=== PATIENT | female | born 1945 | race Caucasian/White ===

== ENCOUNTER 2021-10-05 15:18 | Emergency (ER) | payer MEDICARE, BC, SELFPAY ==
--- NOTE | ~2021-10-05 | MR_ITS ---
EXAMINATION: MR BRAIN WITHOUT AND WITH CONTRAST CLINICAL INFORMATION: Brain tumor. Further evaluate. COMPARISON: Head CT from 10/05/2021. TECHNIQUE: Multiplanar, multisequence MRI of the brain was obtained before and after the intravenous administration of 8 mL Gadavist. Limited study with motion artifacts. FINDINGS: There is a large midline parafalcine extra-axial mass measuring 6.3 x 5.8 x 6.7 cm in size which straddles both sides of the falx displacing and distorting the medial portions of the frontal lobes, the anterior cingulate gyri, and the corpus callosum. The inferior portion of the lesion depresses the anterior body of the corpus callosum and abnormally deviates the genu and rostrum of the corpus callosum anteroinferiorly. The mass demonstrates heterogeneous enhancement and contains scattered areas of peripheral calcification on the prior CT study. The mass is isointense to hypointense in signal with some internal areas of hyperintensity which may reflect necrosis. There is a mild amount of vasogenic edema in the surrounding frontal lobes. The mass distorts the ventricular system with compression of the frontal horns and anterior third ventricle. There is mild asymmetric prominence of the left lateral ventricle without distention of the temporal horn. There is what may represent a mild transependymal CSF effusion around the posterior body of the left lateral ventricle and occipital horn as a result of early obstructive changes at the level of the foramen of Gu on the left side. The fourth ventricle is normal in size. No extra-axial fluid collections are seen. There is no pathologic leptomeningeal enhancement. No abnormal parenchymal enhancement identified. The major intracranial flow voids at the level of the ute of Flores are preserved. The TAYLOR vasculature traverses along the inferior surface of the lesion and is deviated anteriorly by the mass within the cerebral sulci and interhemispheric fissure. Mass effect results in very mild transtentorial herniation without effacement of the suprasellar cistern. The cerebellum and brainstem are normal. The venous flow voids are maintained. The paranasal sinuses and mastoid air cells are well aerated. The orbits are normal. The pituitary axis structures are grossly unremarkable. The craniovertebral junction is normal. The marrow signal is mildly heterogeneous. MR/MR head/brain wo/w con IMPRESSION: Large midline extra-axial mass with heterogeneous signal and enhancement straddling both sides of the cerebral falx with resultant significant distortion of the frontal lobes, cingulate gyri, and corpus callosum. Given signal characteristics and areas of calcification, imaging findings are most suspicious for a large meningioma. Mild amount of edema in the surrounding brain parenchyma. Imaging findings of early left lateral ventricular obstructive changes due to compression of the foramen of Gu. Mild transependymal CSF effusion around the occipital horn of the left lateral ventricle.
--- NOTE | ~2021-10-05 | XR_ITS ---
EXAMINATION: XR ABDOMEN KUB CLINICAL INDICATION: Constipation COMPARISON: None TECHNIQUE: AP view of the abdomen. FINDINGS: The bowel gas pattern is normal with no evidence of ileus or obstruction. No unusual soft tissue calcifications are noted. Stool burden in the colon appears relatively normal. The bones are unremarkable aside from some mild degenerative changes in the lower thoracic spine and both hips.. XR/XR KUB IMPRESSION: Unremarkable examination.
--- NOTE | ~2021-10-05 | CT_ITS ---
EXAMINATION: CT HEAD WITHOUT CONTRAST CLINICAL INFORMATION: Abnormal behavior. COMPARISON: None. TECHNIQUE: Contiguous axial imaging was performed from the skull base to vertex without intravenous administration of contrast. This CT examination was performed using dose optimization techniques as appropriate, variously including the following: *Automated exposure control *Adjustment of mA and/or kV according to patient size (this includes techniques or standardized protocols for targeted exams where dose is matched to indication/reason for exam; i.e. extremities or head) *Use of iterative reconstruction technique DLP: 662 mGy-cm FINDINGS: There is a large intracranial mass centered in the anterior interhemispheric region and genus of the corpus callosum measuring approximately 6.7 x 5.5 x 5.8 cm (AP, TV and CC dimensions). There are regions of internal necrosis and some associated calcifications. There is surrounding hypoattenuation which could represent peritumoral edema or extension of disease. The mass is causing near complete effacement of the bifrontal horns and there is asymmetric dilatation of the left occipital and temporal horns, concerning for obstructive hydrocephalus. There is also medial displacement of the left uncus with obliteration of the left suprasellar cistern, concerning for uncal herniation. There is no evidence of extra lesional intracranial hemorrhage or edematous territorial infarction. Perez to white matter differentiation is otherwise preserved. No extra-axial fluid collections. No acute soft tissue or osseous abnormalities. The mastoid air cells and paranasal sinuses are clear. CT/CT head/brain wo con IMPRESSION: Large intracranial mass worrisome for an aggressive tumor such as glioblastoma multiforme. Correlate with an MR of the brain with and without intravenous contrast. There are findings worrisome for left obstructive hydrocephalus and left uncal herniation. This critical result was discussed with Dr Verde at 10/05/2021 6:38 PM and it was ascertained that the content and urgency of the report was understood at the time of direct communication.
[2021-10-05 15:39] VITALS: BP 148/56; PULSE 53; RESP 18; TEMP 36.4; O2SAT 99; BMI 26.6
[2021-10-05 16:20] VITALS: BP 146/73; PULSE 53; O2SAT 97
--- NOTE | 2021-10-05 16:20 | ED_ITS ---
HPI - Psych General Chief Complaint: Psychiatric Symptoms Stated Complaint: CRISIS Time Seen by Provider: 10/05/21 15:56 Source: patient and family Mode of arrival: ambulatory Limitations: altered mental status History of Present Illness HPI Narrative: 75-year-old female presents from [facility] for odd behaviors. She presents with family. MD complaint: altered mental status Onset (ago): year(s) Duration: constant and getting worse History of same: Yes Relieving factors: none Associated psychiatric symptoms: other (Sam) Associated symptoms: denies other symptoms Related Data Home Medications Medication Instructions Recorded Confirmed atorvastatin 20 mg tablet 20 mg PO BEDTIME 10/05/21 10/05/21 calcium carbonate 600 mg-vitamin 1 tab PO DAILY 10/05/21 10/05/21 D3 5 mcg (200 unit) tablet multivitamin with minerals 1 tab PO DAILY 10/05/21 10/05/21 omega 1-rbv-izr-fish oil 1,200 mg 1 cap PO DAILY 10/05/21 10/05/21 (144 mg-216 mg) capsule (Fish Oil) sertraline 25 mg tablet 50 mg PO DAILY 10/05/21 10/05/21 Allergies Allergy/AdvReac Type Severity Reaction Status Date / Time No Known Allergies Allergy Verified 10/05/21 15:38 Review of Systems Review of Systems: Constitutional: No Fever, No Chills ENT/Mouth: No Ear Pain, No Nasal Congestion, No sore throat Eyes: No Eye Pain, No Swelling, No Redness Cardiovascular: No Chest Pain, No SOB Respiratory: No Cough, No Sputum, No Dyspnea Gastrointestinal: No Nausea, No Vomiting, No Diarrhea, No Hematochezia, No Melena Genitourinary: No Dysuria, No Urinary Frequency, No Hematuria Musculoskeletal: No Myalgias Skin: No Skin Lesions, No rash Neuro: No Weakness, No Numbness, No Paresthesias, No Dizziness, No Headache Psych: positive Anxiety, positive Depression, no SI/HI, positive obsessive behaviors Heme/Lymph: No Lymphadenopathy Endocrine: No Polyuria, No Polydipsia Yes all other systems are reviewed and are negative [facility] Past Medical History Attestation statement: The following information was validated with the patient. Source: old records reviewed Social History Social History Alcohol intake: never Patient Tobacco Use Status: Never used Tobacco Use of substances other than those prescribed or required for medical reasons: No Advance Directives: Yes Advance Directives Information Provided: No Advance Directives on File: No Physical Exam Vital Signs: Vital Signs: Last Vital Signs Temp 97.9 F 10/05/21 22:03 Pulse 57 10/06/21 00:52 Resp 17 10/06/21 00:52 BP 148/52 H 10/05/21 22:03 Pulse Ox 98 10/05/21 22:03 BMI result Body Mass Index 26.6 Appearance: Alert. Oriented to self and situation. No acute distress. Eyes: Pupils equal, round and reactive to light. Sclera nonicteric. EOMI. ENT: Pharynx normal. Moist mucous membranes. Neck: Normal inspection. Neck supple. CVS: Normal heart rate and rhythm. Pulses normal. Respiratory: No respiratory distress. Breath sounds normal. Abdomen: Soft and nontender. Skin: Skin warm and dry. Normal skin color. Normal skin turgor. Extremities: No lower extremity edema. Gait well-balanced well coordinated Neuro: No motor deficit. No sensory deficit. Cranial nerves 2-12 intact Course Course Course Narrative: 75-year-old female presents with family for [facility] psych evaluation and possible admission. Patient has had concerning behaviors, questionable for sam, psychosis, catatonia. Has been sitting on the toilet for long periods of time without moving, making fraudulent charges on credit cards. Has had neuropsych workup, but family does not recall having any imaging of head. Will order CT scan, labs, urinalysis. Chart review record on 09/03/2021 from Clinical neuro psychologist. Medical history includes hypertension, hypercholesterolemia, and urinary incontinence. 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 Patient has been known to make poor judgments and having illogical reasoning. Has no sense of time, spent 2-3 hours showering, would often get her days and nights mixed up. Has given her credit card information to strangers. Was diagnosed with mild cognitive impairment in 2019. States to have rituals around toileting and dressing. Has hoarding like behaviors. 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 17:[address] scan indicates frontal cortex brain mass. Order for MRI with and without contrast. Discussion with family regarding plan, which family agrees. 18:44 discussion with Oncology, plan is for transfer as she requires biopsy and neurosurgery coverage which we do not offer at this facility. 19:20 call to [facility]. Discussion with Neurosurgery on-call. Plan is pending. 20:13 discussion with Neurosurgery on-call, patient is a stable patient, can have this MRI completed as an outpatient, [facility] is close to stable transfers at this time. Patient not a candidate to transfer to [facility] Neurosurgery at this time. Discussion with hospitalist, patient is stable and does not have medical necessity for admission. Care team will discuss with [facility] psych. 21:00 discussion with copy chief cotton bag sewer. 22:00 [facility] psych declined this patient for admission. After multiple discussions, geriatric psych will not accept this patient, hospitalist will not accept this patient as there is no medical necessity and patient is stable. Will order case Management social work associate. Multiple discussions with family regarding plan of care, family verbalized understanding of and agrees for case management consult. Family will follow-up with neuro surgery at [facility] Dr. Dominique Salguero later this week. Physician observation started at this time. 01:[address] Aguero Reevaluation(s) Reevaluation #1: [facility] Time: 18:44 Reevaluation #2: [facility] Time: 19:20 Reevaluation #3: [place] Time: 20:13 MDM - Psych MDM Narrative Medical decision making narrative: CVA, brain tumor Differential Diagnosis Differential diagnosis: Likely acute psychosis and depression Medical Records Attestation: I reviewed the patient's medical records. Lab Data Attestation: I reviewed the patient's lab results. Result diagrams: 10/05/21 17:55 10/05/21 19:25 Labs: Lab Results 10/05/21 10/05/21 10/05/21 Range/Units 17:46 17:55 19:25 WBC 6.7 (4.8-10.8) X10*3/uL RBC 5.19 (4.20-5.50) X10*6/uL Hgb 15.2 (12.0-16.0) g/dl Hct 46.6 (37.0-47.0) % MCV 89.8 (80.0-98.0) fL MCH 29.3 (27.0-33.0) pg MCHC 32.6 (31.0-35.0) g/dl RDW 13.0 (11.0-16.0) % Plt Count 234 (160-400) X10*3/uL MPV 11.3 (9.4-12.3) fL Immature Gran % (Auto) 0.1 (0.0-0.4) % Neut % (Auto) 67.4 (45-73) % Lymph % (Auto) 24.4 (20-40) % [place] % (Auto) 6.0 (2-11) % Eos % (Auto) 1.8 (0-4) % Baso % (Auto) 0.3 (0-2) % Lymph # (Auto) 1.6 (1.2-4.9) X10*3/uL [place] # (Auto) 0.4 (0.1-1.2) X10*3/uL Eos # (Auto) 0.1 (0.0-0.4) X10*3/uL Baso # (Auto) 0.0 (0.0-0.2) X10*3/uL Abs Immat Gran (auto) 0.01 (0.00-0.03) X10*3/uL Absolute Neuts (auto) 4.5 (2.0-8.3) x10*3/uL Absolute Nucleated RBC 0.000 (0.0-0.012) X10*3/uL Nucleated RBC % (auto) 0.0 (0.0-0.2) /100WBC Sodium 140 (135-145) mmol/L Potassium 3.9 (3.3-5.1) mmol/L Chloride 105 (96-108) mmol/L Carbon Dioxide 26 (22-29) mmol/L Anion Gap 13 (12-20) BUN 12 (9-16) mg/dL Creatinine 0.75 (0.5-1.4) mg/dL Estim Creat Clear Calc 70.4 Estimated GFR > 60 Random Glucose 87 (60-115) mg/dL Calcium 9.7 (8.4-10.2) mg/dL Total Bilirubin 0.8 (0.0-1.0) mg/dL AST 16 (5-31) U/L ALT 16 (0-31) U/L Alkaline Phosphatase 97 (39-117) U/L Total Protein 6.9 (6.5-8.0) g/dL Albumin 4.1 (3.5-5.0) g/dL Urine Color Urine Appearance Urine pH (5.0-8.0) Ur Specific Terry (1.005-1.025) Urine Protein (NEG-TRACE) MG/DL Urine Glucose (UA) (NEG) MG/DL Urine Ketones (NEG) MG/DL Urine Blood (NEG) Urine Nitrite (NEG) Ur Leukocyte Esterase (NEG) Salicylates < 5.0 L (15-30) mg/dL Urine Opiates Screen (Not Detect) Urine Fentanyl Screen (Not Detect) Acetaminophen < 1 (<30) mcg/mL Ur Barbiturates Screen (Not Detect) Ur Phencyclidine Scrn (Not Detect) Ur Amphetamines Screen (Not Detect) U Benzodiazepines Scrn (Not Detect) Urine Cocaine Screen (Not Detect) U Marijuana (THC) Screen (Not Detect) Ethyl Alcohol mg/dL COVID-19 (TONYA) Negative (Negative) COVID-19 Clin Com See Note 10/05/21 10/05/21 10/05/21 Range/Units 19:25 22:37 22:37 WBC (4.8-10.8) X10*3/uL RBC (4.20-5.50) X10*6/uL Hgb (12.0-16.0) g/dl Hct (37.0-47.0) % MCV (80.0-98.0) fL MCH (27.0-33.0) pg MCHC (31.0-35.0) g/dl RDW (11.0-16.0) % Plt Count (160-400) X10*3/uL MPV (9.4-12.3) fL Immature Gran % (Auto) (0.0-0.4) % Neut % (Auto) (45-73) % Lymph % (Auto) (20-40) % [place] % (Auto) (2-11) % Eos % (Auto) (0-4) % Baso % (Auto) (0-2) % Lymph # (Auto) (1.2-4.9) X10*3/uL [place] # (Auto) (0.1-1.2) X10*3/uL Eos # (Auto) (0.0-0.4) X10*3/uL Baso # (Auto) (0.0-0.2) X10*3/uL Abs Immat Gran (auto) (0.00-0.03) X10*3/uL Absolute Neuts (auto) (2.0-8.3) x10*3/uL Absolute Nucleated RBC (0.0-0.012) X10*3/uL Nucleated RBC % (auto) (0.0-0.2) /100WBC Sodium (135-145) mmol/L Potassium (3.3-5.1) mmol/L Chloride (96-108) mmol/L Carbon Dioxide (22-29) mmol/L Anion Gap (12-20) BUN (9-16) mg/dL Creatinine (0.5-1.4) mg/dL Estim Creat Clear Calc Estimated GFR Random Glucose (60-115) mg/dL Calcium (8.4-10.2) mg/dL Total Bilirubin (0.0-1.0) mg/dL AST (5-31) U/L ALT (0-31) U/L Alkaline Phosphatase (39-117) U/L Total Protein (6.5-8.0) g/dL Albumin (3.5-5.0) g/dL Urine Color YELLOW Urine Appearance CLEAR Urine pH 7.0 (5.0-8.0) Ur Specific Terry 1.010 (1.005-1.025) Urine Protein NEG (NEG-TRACE) MG/DL Urine Glucose (UA) NEG (NEG) MG/DL Urine Ketones NEG (NEG) MG/DL Urine Blood NEG (NEG) Urine Nitrite NEG (NEG) Ur Leukocyte Esterase NEG (NEG) Salicylates (15-30) mg/dL Urine Opiates Screen Not Detected (Not Detect) Urine Fentanyl Screen Not Detected (Not Detect) Acetaminophen (<30) mcg/mL Ur Barbiturates Screen Not Detected (Not Detect) Ur Phencyclidine Scrn Not Detected (Not Detect) Ur Amphetamines Screen Not Detected (Not Detect) U Benzodiazepines Scrn Not Detected (Not Detect) Urine Cocaine Screen Not Detected (Not Detect) U Marijuana (THC) Screen Not Detected (Not Detect) Ethyl Alcohol < 10 mg/dL COVID-19 (TONYA) (Negative) COVID-19 Clin Com Imaging Data CT head: Attestation: I personally reviewed and interpreted this imaging study as follows: Radiologist's impression: EXAMINATION: CT HEAD WITHOUT CONTRAST CLINICAL INFORMATION: Abnormal behavior.? COMPARISON: None. TECHNIQUE: Contiguous axial imaging was performed from the skull base to vertex without intravenous administration of contrast. This CT examination was performed using dose optimization techniques as appropriate, variously including the following: *Automated exposure control *Adjustment of mA and/or kV according to patient size (this includes techniques or standardized protocols for targeted exams where dose is matched to indication/reason for exam; i.e. extremities or head) *Use of iterative reconstruction technique DLP: 662 mGy-cm FINDINGS: There is a large intracranial mass centered in the anterior interhemispheric region and genus of the corpus callosum measuring approximately 6.7 x 5.5 x 5.8 cm (AP, TV and CC dimensions). There are regions of internal necrosis and some associated calcifications. There is surrounding hypoattenuation which could represent peritumoral edema or extension of disease. The mass is causing near complete effacement of the bifrontal horns and there is asymmetric dilatation of the left occipital and temporal horns, concerning for obstructive hydrocephalus. There is also medial displacement of the left uncus with obliteration of the left suprasellar cistern, concerning for uncal herniation. There is no evidence of extra lesional intracranial hemorrhage or edematous territorial infarction. Perez to white matter differentiation is otherwise preserved. No extra-axial fluid collections. No acute soft tissue or osseous abnormalities. The mastoid air cells and paranasal sinuses are clear. ? CT/CT head/brain wo con IMPRESSION: ? Large intracranial mass worrisome for an aggressive tumor such as glioblastoma multiforme. Correlate with an MR of the brain with and without intravenous contrast. ? There are findings worrisome for left obstructive hydrocephalus and left uncal herniation. ? This critical result was discussed with Dr Verde at 10/05/2021 6:38 PM and it was ascertained that the content and urgency of the report was understood at the time of direct communication. ? KUB: Attestation: I personally reviewed and interpreted this imaging study as follows: Radiologist's impression: EXAMINATION: XR ABDOMEN KUB CLINICAL INDICATION: Constipation? COMPARISON: None? TECHNIQUE: AP view of the abdomen. FINDINGS: The bowel gas pattern is normal with no evidence of ileus or obstruction. No unusual soft tissue calcifications are noted. Stool burden in the colon appears relatively normal. The bones are unremarkable aside from some mild degenerative changes in the lower thoracic spine and both hips.. XR/XR KUB IMPRESSION: Unremarkable examination. ? ECG Data Attestation: I personally reviewed and interpreted this ECG as follows: ECG interpretation date: 10/05/21 ECG interpretation time: 18:32 Prior ECG tracings: not available for review Interpretation: Vent. rate 48 BPM NM interval 202 ms QRS duration 96 ms QT/QTc 460/410 ms P-R-T axes 45 41 12 Sinus bradycardia Otherwise normal ECG No previous ECGs available Critical Care Time Critical Care Time Critical Care Time: Yes Total Critical Care Time: 65 Attestation: I have personally provided critical care time exclusive of time spent on separately billable procedures. Time includes review of laboratory data, radiology results, discussion with consultants, and monitoring for potential decompensation. Interventions were performed as documented. Discharge Plan Discharge Clinical Impression: Brain tumor Patient Disposition: Still a Patient Prescriptions: No Action sertraline 25 mg Tablet 50 mg PO DAILY 0RF atorvastatin 20 mg Tablet 20 mg PO BEDTIME 0RF calcium carbonate-vitamin D3 [Calcium + D] 600 mg-5 mcg (200 unit) Tablet 1 tab PO DAILY 0RF omega 0-aqz-gwx-fish oil [Fish Oil] 1,200 (144-216) mg Capsule 1 cap PO DAILY 0RF multivitamin with minerals Tablet 1 tab PO DAILY 0RF
--- NOTE | 2021-10-05 16:23 | ECG_ITS ---
Test Reason : AMS Blood Pressure : / mmHG Vent. Rate : 048 BPM Atrial Rate : 048 BPM P-R Int : 202 ms QRS Dur : 096 ms QT Int : 460 ms P-R-T Axes : 045 041 012 degrees QTc Int : 410 ms Sinus bradycardia Otherwise normal ECG No previous ECGs available Referred By: Jessenia Pardo Electronically Signed By:Darek Vilchis
--- NOTE | 2021-10-05 16:46 | PHA.MEDREC ---
MED REC COMPLETE, NO ISSUES. SERTRALINE WAS RECENTLY INCREASED TO 50 MG Pharmacy Consult ? Medication Reconciliation Pharmacy has completed the medication reconciliation.
[2021-10-05 18:02] LABS: MANUAL DIFF FLAG NO
[2021-10-05 18:19] LABS: COVID-19 Test Negative (Negative)
[2021-10-05 18:20] LABS: Basophils Percent Auto 0.3 % (0-2); Eosinophils Absolute Auto 0.1 X10*3/uL (0.0-0.4); Eosinophils Percent Auto 1.8 % (0-4); Hematocrit 46.6 % (37.0-47.0); Hemoglobin 15.2 g/dl (12.0-16.0); Imm Gran Abs Auto 0.01 X10*3/uL (0.00-0.03); Imm Gran Pct Auto 0.1 % (0.0-0.4); Lymphocytes Absolute Auto 1.6 X10*3/uL (1.2-4.9); Lymphocytes Percent Auto 24.4 % (20-40); Mean Corpuscular HGB Conc 32.6 g/dl (31.0-35.0); Mean Corpuscular Hemoglobin 29.3 pg (27.0-33.0); Mean Corpuscular Volume 89.8 fL (80.0-98.0); Mean Platelet Volume 11.3 fL (9.4-12.3); Monocytes Absolute Auto 0.4 X10*3/uL (0.1-1.2); Neutrophils Absolute Auto 4.5 x10*3/uL (2.0-8.3); Neutrophils Percent Auto 67.4 % (45-73); Platelet Count 234 X10*3/uL (160-400); Red Blood Count 5.19 X10*6/uL (4.20-5.50); White Blood Count 6.7 X10*3/uL (4.8-10.8)
--- NOTE | 2021-10-05 18:23 | PC.NURSE ---
Pt difficult stick, labs hemolyzed drawn prior. Phelbotomy paged overhead for assist
[2021-10-05 19:44] LABS: Ethanol < 10 mg/dL
[2021-10-05 19:48] LABS: Alanine Aminotransferase 16 U/L (0-31); Albumin Level 4.1 g/dL (3.5-5.0); Alkaline Phosphatase 97 U/L (39-117); Anion Gap 13 (12-20); Aspartate Amino Transferase 16 U/L (5-31); Bilirubin Total 0.8 mg/dL (0.0-1.0); Blood Urea Nitrogen 12 mg/dL (9-16); Calcium 9.7 mg/dL (8.4-10.2); Carbon Dioxide 26 mmol/L (22-29); Chloride 105 mmol/L (96-108); Creatinine Clr Calc Pharmacy 70.4; Estimated Glomerular Filt Rate > 60; Glucose Random 87 mg/dL (60-115); Potassium 3.9 mmol/L (3.3-5.1); Sodium 140 mmol/L (135-145); Total Protein 6.9 g/dL (6.5-8.0)
[2021-10-05 20:01] LABS: Acetaminophen LAB < 1 mcg/mL (<30); Salicylate < 5.0 mg/dL (15-30)
[2021-10-05] MEDS: dexAMETHasone sod phosphate 4 MG/ML VIAL 6 MG IVPUSH (21:30)
[2021-10-05 22:03] VITALS: BP 148/52; PULSE 53; RESP 16; TEMP 36.6; O2SAT 98
[2021-10-05 22:44] LABS: Appearance Urine CLEAR; Color Urine YELLOW; Glucose Urine UA NEG (NEG); Leukocyte Esterase Urine NEG (NEG); Nitrite Urine NEG (NEG); Urine Blood NEG (NEG); Urine Ketones NEG (NEG); Urine Protein NEG (NEG-TRACE)
[2021-10-05 22:56] LABS: Amphetamine Screen Urine Not Detected (Not Detect); Barbiturates, Urine Not Detected (Not Detect); Benzodiazepines Screen Urine Not Detected (Not Detect); Cannabinoid Screen Urine Not Detected (Not Detect); Cocaine Screen Urine Not Detected (Not Detect); Fentanyl, urine Not Detected (Not Detect); Opiate Screen Urine Not Detected (Not Detect); Phencyclidine Screen Urine Not Detected (Not Detect)
--- NOTE | 2021-10-05 23:59 | MHC.CARE ---
Addendum entered by Hollie De La Rosa, [facility] 10/06/21 01:27: Correction: pt will not be medically admitted-- referred to case management for services. Original Note: CARE team coordinated communication between emergency department provider and demolitionist psychiatry re: pt who had come to the ED from home at the recommendation of her outpatient brush loader and handle attacher for severely impacted ADLs and notable behavior change management consultant the past several years, and more so in the past 6 months. Pt received a CT scan while in the ED which revealed a large tumor on the frontal cortex region of the pt's brain. At this time, the pt and her daughter have reported that they do not wish to pursue psychiatric treatment and believe that it would be best if they addressed the tumor with neurology. The pt and her daughter denied any notable history of psychiatric symptoms prior to 4 years ago and have no safety concerns. Per ED provider- the plan is for pt to be a medical admission for further testing and diagnostics.
[2021-10-06 00:52] VITALS: PULSE 57; RESP 17
--- NOTE | 2021-10-06 02:55 | PC.NURSE ---
I assumed care of this pt at 1900. At that time the pt was resting in bed with daughter at bedside, alert, oriented to person and place but not to time. Shortly after I arrived the pt was taken to MRI and returned an hour later without incident. At that time she took PO food and fluids without difficulty. She has no complaints - no pain, no nausea. She makes eye contact with RN and is calm and cooperative. Respirations are non-labored, she speaks in full sentences. he pt is under phys. obv. and the pt and daughter verbalize an understanding of this. Awaiting case mgmt eval/possible placement in the AM.
[2021-10-06 10:00] VITALS: RESP 18
[2021-10-06 10:46] VITALS: BP 124/46; PULSE 57; RESP 15; O2SAT 98
[2021-10-06 11:35] VITALS: BP 124/46; PULSE 57; O2SAT 98
--- NOTE | 2021-10-06 11:49 | MHC.CM.ED ---
Received case management consult from Dr Poole. Patient came to the ER due to section 12. Cleared by Care team. Found to have meningioma via Brain MRI. Physical therapy eval completed. Home therapy is recommended. Met with patient and daughter, Margaret, in regards to discharge planning. Patient lives with her at [facility]. 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 Patient and Margaret requesting referral to [facility]. Referral made via [employer]. PCP verified. Copy of HCP obtained from PCP's office. Patient received 3 Moderna vaccines. [facility] will transport patient home. Patient, Paradise Robles RN and Dr Poole aware. Continue to monitor for d/c needs.
== END 2021-10-06 14:35 | disposition home or self-care (01) ==
PROVIDERS: Nurse Practitioner Family; Emergency Provider Emergency Medicine; PCP Internal Medicine
DX: D49.6 Neoplasm of unspecified behavior of brain (principal); Z20.822 Contact with and (suspected) exposure to COVID-19; F41.9 Anxiety disorder, unspecified; F32.A Depression, unspecified; R46.81 Obsessive-compulsive behavior; I10 Essential (primary) hypertension
CPT/HCPCS: 70450; 70553; 74018; 80053; 80143; 80179; 80307; 81003; 82077; 85025; 87635; 93005; 96374; 96375; 97162; 99285; 99291; A9585; J1100

== ENCOUNTER 2022-03-18 09:01 | Outpatient (RCR) | payer MEDICARE, BC, SELFPAY | END 2022-08-04 16:13 | disposition home or self-care (01) | LOC: HO.OT 09:01 | PROVIDERS: PCP Internal Medicine; Visit Provider Surgery Vascular Surgery | DX: I89.0 Lymphedema, not elsewhere classified (principal) ==